=== PATIENT | female | born 1945 | race Caucasian/White ===

== ENCOUNTER 2022-09-28 16:09 | Inpatient (IN) | payer OTHER ==
[~2022-09-28] VITALS: Ht 167.6 cm; Wt 89.4 kg
[2022-09-28 17:44] LABS: BASOPHILS % 0.2 % (0.0-2.0); EOSINOPHILS % 0.7 % (0.0-5.0); HEMATOCRIT. 39.8 % (36.0-48.0); HEMOGLOBIN. 13.6 g/dL (12.0-16.0); LYMPHOCYTES % 13.4 % (20.0-50.0); MEAN CORPUSCULAR HEMOGLOBIN 31.7 pg (28.0-32.0); MEAN CORPUSCULAR VOLUME 92.6 fL (81.0-99.0); MEAN PLATELET VOLUME 9.3 fl (7.4-10.4); MONOCYTES % 6.5 % (2.0-8.0); NEUTROPHILS % 79.2 % (40.0-76.0); PLATELET 327 x1000/uL (130-400); RED CELL DISTRIBUTION WIDTH 14.4 % (11.6-14.6)
[2022-09-28 17:50] LABS: CHLORIDE 94 mEq/L (98-107)
[2022-09-28] MEDS ORDERED: SODIUM CHLORIDE 0.9% 1,000 ML IV ONE ×2 (18:30→19:00)
[2022-09-28] MEDS ORDERED: ATROPINE SULFATE 1MG/10ML SYR IV NR (19:00)
[2022-09-29 03:08] LABS: CLARITY URINE CLOUDY (CLEAR); COLOR URINE YELLOW (YELLOW); KETONES URINE NEGATIVE (NEGATIVE); LEUKOCYTE ESTERASE URINE 1+ (NEGATIVE); NITRITE URINE NEGATIVE (NEGATIVE); OCCULT BLOOD URINE NEGATIVE (NEGATIVE); PH URINE 5.5 (4.5-8.0); PROTEIN URINE NEGATIVE (NEGATIVE); SPECIFIC GRAVITY URINE 1.012 (1.005-1.030); UROBILINOGEN URINE 0.2 E.U./dL (0.2-1.0)
[2022-09-29] MEDS ORDERED: SODIUM CHLORIDE 0.9% 1,000 ML IV SCH (05:00)
[2022-09-29] MEDS ORDERED: PAMIDRONATE DISODIUM 60 MG in SODIUM CHLORIDE 0.9% 500 ML IV NR (06:45)
[2022-09-29 08:00] VITALS: BP 136/63
[2022-09-29 08:44] VITALS: BP 116/62
[2022-09-29] MEDS ORDERED: ENOXAPARIN 30MG/0.3ML SYR SUBCUT SCH (09:00)
[2022-09-29] MEDS: SODIUM CHLORIDE 0.9% 1,000 ML IV SCH (11:15)
[2022-09-29 12:00] VITALS: BP 132/63
[2022-09-29 13:04] LABS: HEMATOCRIT 37.6 % (36.0-48.0); HEMOGLOBIN 12.9 g/dL (12.0-16.0); MEAN CORPUSCULAR HEMOGLOBIN 31.4 pg (28.0-32.0); MEAN CORPUSCULAR VOLUME 91.1 fL (81.0-99.0); PLATELET 348 x1000/uL (130-400); RED BLOOD CELL COUNT 4.12 mill/uL (4.2-5.4); RED CELL DISTRIBUTION WIDTH 14.6 % (11.6-14.6)
[2022-09-29 14:06] LABS: T4 FREE 1.25 ng/dL (0.76-1.46)
[2022-09-29 16:00] VITALS: BP 121/54
[2022-09-29] MEDS ORDERED: POTASSIUM CHLORIDE 20MEQ TABLET SR PO NR (16:30)
[2022-09-29] MEDS ORDERED: FLEC50TA2 MT (17:08)
[2022-09-29] MEDS ORDERED: DABI150C MT (17:08)
[2022-09-29] MEDS ORDERED: PANT40TA51 MT (17:08)
[2022-09-29] MEDS ORDERED: METO37.5 MT (17:08)
[2022-09-29] MEDS ORDERED: EXEM25TA MT (17:08)
[2022-09-29 20:00] VITALS: BP 108/44
[2022-09-29] MEDS ORDERED: CEFTRIAXONE 1GM PREMIX 50 ML IV SCH (23:15)
[2022-09-29] MEDS: ENOXAPARIN 100MG/ML SYR SUBCUT SCH (23:48)
[2022-09-29] MEDS: CEFTRIAXONE 1,000 MG in DEXTROSE 5% WATER 50 ML IV SCH (23:48)
[2022-09-30] VITALS (7 sets, daily range): BP systolic 100–146; BP diastolic 55–70
[2022-09-30] MEDS: SODIUM CHLORIDE 0.9% 1,000 ML IV SCH ×3 (01:08→21:17)
[2022-09-30] MEDS ORDERED: PANTOPRAZOLE 40MG DR TABLET PO SCH (09:00)
[2022-09-30] MEDS: CEFTRIAXONE 1,000 MG in DEXTROSE 5% WATER 50 ML IV SCH (23:28)
[2022-09-30] MEDS: ENOXAPARIN 100MG/ML SYR SUBCUT SCH (23:30)
[2022-10-01] VITALS: BP 127/55
[2022-10-02 13:07] LABS: A/G RATIO 0.8 (0.7-1.7); ALBUMIN 2.4 g/dL (2.9-4.4); ALPHA-1-GLOBULIN 0.3 g/dL (0.0-0.4); ALPHA-2-GLOBULIN 0.9 g/dL (0.4-1.0); BETA GLOBULIN 0.9 g/dL (0.7-1.3); GLOBULIN TOTAL 3.1 g/dL (2.2-3.9); M-SPIKE Not Observed g/dL (Not Observed); TOTAL PROTEIN SERUM 5.5 g/dL (6.0-8.5)
== END 2022-10-01 02:13 | disposition short-term general hospital (02) | DRG 308 ==
LOC: ER 16:09 → MICUSO 18:53 → EDBEDREQ 18:54 → 8WST 09-29 07:05
PROVIDERS: ADMIT Internal Medicine; ATTEND Internal Medicine
DX: I48.91 Unspecified atrial fibrillation (principal); N17.0 Acute kidney failure with tubular necrosis; E87.1 Hypo-osmolality and hyponatremia; R00.1 Bradycardia, unspecified; E83.52 Hypercalcemia; N18.9 Chronic kidney disease, unspecified; I12.9 Hypertensive chronic kidney disease with stage 1 through stage 4 chronic kidney disease, or unspecified chronic kidney disease; E86.9 Volume depletion, unspecified; E78.00 Pure hypercholesterolemia, unspecified; G89.29 Other chronic pain; Z85.3 Personal history of malignant neoplasm of breast; Z79.01 Long term (current) use of anticoagulants
CPT/HCPCS: 36415; 71045; 71250; 74176; 80048; 80053; 80061; 81003; 82330; 82533; 83880; 83930; 83970; 84155; 84165; 84439; 84443; 84481; 84484; 85025; 85027; 93005; 93306; 93970; 99291; J0461; J0696; J1650; J2430; J7030; J7040; J7060